=== PATIENT | male | born 1970 | race African-American/Black ===

== ENCOUNTER 2018-01-03 11:27 | Emergency (ER) | payer OTHER ==
[~2018-01-03] VITALS: Ht 177.8 cm; Wt 108.9 kg
[2018-01-03] MEDS ORDERED: NORCO 5-325 TA1 EACH PO (13:31)
[2018-01-03] MEDS ORDERED: CYCLOBENZAPRINE5 MG PO (13:31)
[2018-01-03 13:40] VITALS: BP 158/89
== END 2018-01-03 13:40 | disposition home or self-care (01) ==
LOC: ER 11:27
DX: S16.1XXA Strain of muscle, fascia and tendon at neck level, initial encounter (principal); M25.522 Pain in left elbow; M54.6 Pain in thoracic spine; V89.2XXA Person injured in unspecified motor-vehicle accident, traffic, initial encounter; Y93.89 Activity, other specified; Y92.89 Other specified places as the place of occurrence of the external cause; Y99.8 Other external cause status